=== PATIENT | female | born 2005 | race Caucasian/White ===

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

== ENCOUNTER 2024-01-20 19:50 | Observation (INO) | payer OTHER ==
[~2024-01-20] VITALS: Ht 172.7 cm; Wt 79.0 kg
[2024-01-20] MEDS ORDERED: ondansetron HCL 4 MG/2 ML VIAL IV ONE ×2 (20:15→22:30)
[2024-01-20 20:28] LABS: BILIRUBIN, URINE NEGATIVE (negative); BLOOD/HGB, URINE SMALL (Negative); KETONE, URINE NEGATIVE (Negative); LEUK ESTERASE, URINE NEGATIVE (negative); NITRITE, URINE NEGATIVE (negative); PH, URINE 6.5 (5-7)
[2024-01-20 20:30] LABS: BASOPHILS 0.2 % (0-2); HEMOGLOBIN 12.3 g/dL (12.0-18.0); LYMPHOCYTES 15.1 % (24-44); MCH 24.1 (27-36); MCHC 33.3 g/dl (30-36); MCV 72.5 fl (81-99); MONOCYTES 6.4 % (0-12); NEUTROPHILS 75.3 % (39-80); PLATELET COUNT 300 K/uL (140-440); RDW 17.5 (10.5-15.0)
[2024-01-20 20:35] LABS: CRYSTALS, URINE NONE SEEN (0-1+); EPITHELIAL CELLS, URINE SQUAMOUS 4+ /lpf (0-1+)
[2024-01-20 20:36] LABS: BACTERIA, URINE RARE /hpf (negative); CASTS, URINE NONE SEEN \\lpf; COLLECTION TYPE, URINE CLEAN CATCH; REFLEX CULTURE, URINE No (No)
[2024-01-20 20:47] LABS: ALBUMIN 3.9 g/dL (3.4-5.0); ALBUMIN/GLOBULIN RATIO 0.98 (1.1-2.4); ANION GAP 11.2 (7-21); BILIRUBIN, TOTAL 0.6 ng/dL (0.2-1.0); BUN/CREATININE RATIO 18.29 (6.0-28.6); CALCIUM 9.2 mg/dL (8.5-10.1); CREATININE, SERUM 0.82 mg/dL (0.55-1.02); POTASSIUM 4.2 mmol/L (3.5-5.1); PROTEIN, TOTAL 7.9 g/dL (6.4-8.2)
[2024-01-20] MEDS ORDERED: MORPHINE SULFATE 4 MG/ML VIAL IV ONE (21:15)
[2024-01-20] MEDS ORDERED: CEFAZOLIN SODIUM 2 GM/20 ML SYR IV ONE (22:15)
[2024-01-20] MEDS ORDERED: FAMOTIDINE 20 MG/ 2 ML VIAL IV ONE (22:30)
[2024-01-20] MEDS ORDERED: FAMOTIDINE 20 MG/ 2 ML VIAL IV SCH (22:56)
[2024-01-20] MEDS ORDERED: MORPHINE SULFATE 10 MG/ML VIAL IV PRN (23:00)
[2024-01-20] MEDS ORDERED: KETOROLAC TROMETHAMINE 30 MG/ML VIAL IV PRN (23:00)
[2024-01-20] MEDS ORDERED: LACTATED RINGER'S 1,000 ML IV SCH (23:00)
[2024-01-20] MEDS ORDERED: ondansetron HCL 4 MG/2 ML VIAL IV PRN (23:00)
[2024-01-20 23:25] VITALS: BP 107/91
--- NOTE | 2024-01-20 23:25 | NUR ---
PATIENT TO FLOOR VIA WHEELCHAIR BY CHEMICAL DEPENDENCY PROFESSIONAL.
--- NOTE | 2024-01-20 23:50 | NUR ---
PT DENIES ANY KNOWN DRUG ALLERGIES.
[2024-01-21] VITALS (10 sets, daily range): BP systolic 91–111; BP diastolic 54–73
--- NOTE | 2024-01-21 00:01 | NUR ---
PATIENT NPO AT THIS TIME.
--- NOTE | 2024-01-21 00:09 | NUR ---
PATIENT RESTING IN BED. ASSESSMENT COMPLETE. PATIENT REPORTS 5/10 RUQ PAIN. PRN PAIN MEDICATION ADMINISTERED PER PATIENT AND MOTHERS REQUEST. PATIENT IV FLUSHES WNL. PATIENT AND MOTHER EDUCATED TO ROOM AND CALL LIGHT. PATIENT EDUCATED TO CALL IF SHE NEEDS TO GET UP TO THE BATHROOM. PATIENT VERBILIZES UNDERSTANDING. BLANKETS PROVIDED TO MOTHER. NO FURTHER NEEDS. CALL LIGHT IN REACH.
--- NOTE | 2024-01-21 00:40 | NUR ---
CALL LIGHT ANSWERED. WARM BLANKETS PROVIDED TO MOTHER AND PATIENT. PILLOW PROVIDED TO MOTHER AND PHONE DUPLIGRAPH OPERATOR PROVIDED TO PATIENT. NO FURTHER NEEDS. CALL LIGHT IN REACH.
--- NOTE | 2024-01-21 02:38 | NUR ---
PATIENT RESTING IN BED ON BACK WITH EYES CLOSED. RESPIRATIONS EVEN AND UNLABORED. CALL LIGHT IN REACH.
--- NOTE | 2024-01-21 05:15 | NUR ---
CHLORHEXIDINE WIPE DOWN COMPLETE INDEPENDENTLY BY PATIENT. NEW GOWN PROVIDED AND BEDDING PLACED. LR WITH STRAIGHT TUBING HUNG ON BED. SCDs IN PLACE. PATIENT UNDERWEAR, BELLY BUTTON RING, AND NOSE RING STILL IN PLACE. PATIENT AWARE THAT THESE NEED TO BE REMOVED PRIOR TO SURGERY. PATIENT VERBILIZES UNDERSTANDING. VS AND I&Os OBTAINED AND RECORDED. PATIENT AND MOTHER DENY FURTHER NEEDS. CALL LIGHT IN REACH.
[2024-01-21 05:33] LABS: BASOPHILS 0.2 % (0-2); EOSINOPHILS 3.6 % (0-6); HEMATOCRIT 31.6 % (35.0-50.0); HEMOGLOBIN 10.5 g/dL (12.0-18.0); LYMPHOCYTES 25.5 % (24-44); MCH 23.7 (27-36); MCHC 33.4 g/dl (30-36); MCV 71.1 fl (81-99); MONOCYTES 8.8 % (0-12); NEUTROPHILS 61.9 % (39-80); PLATELET COUNT 223 K/uL (140-440); RBC 4.44 M/ul (4.3-5.7)
[2024-01-21] MEDS ORDERED: CEFAZOLIN SODIUM 2 GM/20 ML SYR IV SCH (06:00)
--- NOTE | 2024-01-21 06:00 | NUR ---
IV ABX INFUSING PER ORDER. PATIENT DENIES FURTHER NEEDS. CALL LIGHT IN REACH.
[2024-01-21] MEDS ORDERED: propofoL 200 MG/20 ML VIAL ONE ×2 (06:39→07:52)
[2024-01-21] MEDS ORDERED: MIDAZOLAM HCL 2 MG/2 ML VIAL ONE (06:39)
[2024-01-21] MEDS ORDERED: FAMOTIDINE 20 MG/ 2 ML VIAL ONE (06:39)
[2024-01-21] MEDS ORDERED: LACTATED RINGER'S 1,000 ML IV ONE (06:39)
[2024-01-21] MEDS ORDERED: KETOROLAC TROMETHAMINE 30 MG/ML VIAL ONE (06:39)
[2024-01-21] MEDS ORDERED: DEXAMETHASONE SOD PHOS 4 MG/ML VIAL ONE (06:39)
[2024-01-21] MEDS ORDERED: METOCLOPRAMIDE HCL 10 MG/2 ML SDV ONE (06:39)
[2024-01-21] MEDS ORDERED: fentaNYL citrate 100 MCG/2 ML VIAL ONE (06:39)
[2024-01-21] MEDS ORDERED: LIDOCAINE HCL 4% 5 ML AMP ONE (06:39)
[2024-01-21] MEDS ORDERED: SUCCINYLCHOLINE IN 0.9% NACL 200 MG/10 ML SYRINGE ONE (06:39)
[2024-01-21] MEDS ORDERED: ROCURONIUM BROMIDE 50 MG/5 ML SYR ONE (06:39)
[2024-01-21] MEDS ORDERED: ondansetron HCL 4 MG/2 ML VIAL ONE (06:39)
[2024-01-21] MEDS ORDERED: SUGAMMADEX SODIUM 200 MG/2 ML ML ONE (06:39)
--- NOTE | 2024-01-21 07:10 | NUR ---
REPORT RECEIVED FROM TELEMARKETING SUPERVISOR RN. OR NURSE CAME TO TAKE PATIENT TO SURGERY.
[2024-01-21] MEDS ORDERED: NALOXONE HCL 0.4 MG SYR IV PRN (07:30)
[2024-01-21] MEDS ORDERED: MORPHINE SULFATE 10 MG/ML VIAL IV PRN (07:30)
[2024-01-21] MEDS ORDERED: fentaNYL citrate 50 MCG/ML SDV IV PRN (07:30)
[2024-01-21] MEDS ORDERED: METOCLOPRAMIDE HCL 10 MG/2 ML SDV IV PRN (07:30)
[2024-01-21] MEDS ORDERED: PROCHLORPERAZINE EDISYLATE 10 MG/2 ML VIAL IV PRN (07:30)
[2024-01-21] MEDS ORDERED: ondansetron HCL 4 MG/2 ML VIAL IV PRN (07:30)
[2024-01-21] MEDS ORDERED: IBLOOD GLUCOSE TEST STRIP 1 EA TEST VI PRN (07:30)
--- NOTE | 2024-01-21 07:38 | NUR ---
UR CLINICAL REVIEW: [facility]-APPENDECTOMY WITHOUT ABSCESS OR PERITONITIS WITH LAPAROSCOPY EOCCO OBS 01/20/24 @ 2257 ORDER MATCHES REG NO AUTH REQUIRED FOR OBS PATIENTS PER MEDICAID RULES PLAN TO DC TO HOME WHEN STABLE 01/21/24
[2024-01-21] MEDS ORDERED: droPERidol 5 MG/2 ML VIAL ONE (08:00)
[2024-01-21] MEDS ORDERED: ACETAMINOPHEN 1,000 MG/100 ML VIAL ONE (09:06)
[2024-01-21] MEDS ORDERED: ACETAMINOPHEN 1,000 MG/100 ML VIAL IV ONE (09:15)
--- NOTE | 2024-01-21 09:45 | NUR ---
PATIENT BACK TO ROOM FORM SURGERY. REPORT RECEIVED FROM PACU NURSE. VSS. CPOX IN PLACE, SAO2 WNL. 3 LAP SITES WITH SCANT AMOUNT OF DRAINAGE NOTED. ABD SOFT. NO NOTED BOWEL TONES AT THIS TIME. PATIENT WANTING TO VOID, UNABLE TO STAY AWAKE FOR LONG PERIODS OF TIME. BED GRAHAM USED WITH NO SUCCESS. PUREWICK PLACED UNTIL PATIENT IS MORE ALERT. MOM AT BEDSIDE.
--- NOTE | 2024-01-21 09:56 | NUR ---
PATIENT C/O PAIN 10/06. PRN GIVEN SEE MAY.
--- NOTE | 2024-01-21 10:12 | NUR ---
01/21/24 1012 EstrellaJanuary 0849- PT ARRIVES TO THE PACU WITH ORAL AIRWAY IN PLACE, ON 10L OF O2 VIA MASK AND CHIN LIFT NEEDED TO MAINTAIN AIRWAY. LR INFUSING IN RIGHT AC. ABDOMEN IS SOFT, AND THREE LAP SITES NOTED WITH SMALL AMOUNT OF SHADOWING. PT IS NON REACTIVE TO VERBAL AND TACTILE STIMULI. ALL MONITORS IN PLACE. PT IN SEMI FOWLERS POSITION. RESP EVEN AND UNLABORED. 0854- PT IS REPOSITIONED AND CHIN LIFT IS NO LONGER NEEDED. 02 TURNED DOWN TO 6L. PT IS NON REACTIVE AT THIS TIME. 0900- PT HOB INCREASED. PT IS REACTIVE TO STIMULI AND REPOSITIONING HER HEAD INDEPENDENTLY. PT UNABLE TO FOLLOW DIRECTIONS TO OPEN HER MOUTH TO REMOVE ORAL AIRWAY. 0904- PT IS ABLE TO FOLLOW BASIC COMMANDS. ORAL AIRWAY REMOVED. 0907- MASK REMOVED AND O2 TURNED OFF. PT RESTING IN BED WITH EYES CLOSED. 0912- PT MOVING AROUND IN BED SLOWLY HOLDING HER ABDOMEN. "HURTS". IV TYLENOL GIVEN. 0925- PT REASSESED FOR PAIN AND SHOWS HANDS OF "A LITTLE" AND AGREES WHEN ASKED IF IT WAS A 2-3 ON PAIN SCALE. PT DENIES NAUSEA. 0930-VSS. ALL MONITORS REMOVED. PT TAKEN BACK TO MED/SURG. 0936- PT AT MED/SURG BACK TO ROOM. VS OBTAINED. O2 WAS AT 88%. PT ENCOURAGED TO COUGH AND DEEP BREATHE. PT GIVEN AND PILLOW TO USE TO SPLINT. PT ABLE TO COUGH AND O2 INCREASED TO 92%. REPORT GIVEN AT BEDSIDE. MED/SURGE NURSE AND MOM AT BEDSIDE. 0945- NO QUESTIONS OR CONCERNS. CARE TURNED OVER TO MED/SURGE NURSE AT THIS TIME. PT O2 REMAINED ABOVE 90%. MED/SURG NURSE AWARE. CONTINUOUS PULSE OX IN PLACE.
--- NOTE | 2024-01-21 10:29 | NUR ---
PATIENT ASSISTED TO BSC. 1 PERSON ASSIST. TRANSFERED TOLLERATED WELL. QUANITY SUFFICIENT VOID. PATIENT BACK IN BED. NO FURTHER NEEDS AT THIS TIME. CALL LIGHT WITHIN REACH. MOM AT BEDSIDE.
[2024-01-21] MEDS ORDERED: IBUPROFEN 600 MG TAB PO PRN (10:30)
[2024-01-21] MEDS ORDERED: HYDROCODONE/ACETA 5/325 TAB PO PRN (10:30)
[2024-01-21] MEDS ORDERED: ACETAMINOPHEN 500 MG TAB PO PRN (10:30)
--- NOTE | 2024-01-21 11:46 | NUR ---
PATIENT RESTING IN BED, REPORTS PAIN IS 4/10. DENIES NAUSEA, BOWEL TONES PRESENT X 4 QUADRANTS. SURGICAL SITES WNL. ICE TO ABD IN PLACE. PATIENT TAKING SIPS OF WATER. NO FURTHER NEEDS AT THIS TIME.CALL LIGHT WITHIN REACH, BED ALARM ON.
--- NOTE | 2024-01-21 11:58 | NUR ---
Patient was asleep in their bed with their mom in the room. RN was administering medication and did not need any help. No cares were needed.
--- NOTE | 2024-01-21 13:05 | NUR ---
PATIENT RESTING IN BED. VSS, LAP SITES REMAIN WNL. NO C/O PAIN AT THIS TIME. PATIENT ATE MOST OF HER LUNCH MEAL. NO FURTHER NEEDS. CALL LIGHT WITHIN REACH, BED ALARM ON.
--- NOTE | 2024-01-21 13:46 | NUR ---
PT RESTING IN BED WITH EYES CLOSED, MOTHER AT THE BEDSIDE. CALL LIGHT WITHIN REACH.
--- NOTE | 2024-01-21 14:14 | NUR ---
VISITED DURING SPIRITUAL CARE ROUNDS. PT APPEARED TO BE SLEEPING, SUPPORTED BY MOTHER IN ROOM; STRONG RELATIONAL RESOURCES IN EVIDENCE. SERVICE OFFICER PROVIDED SUPPORTIVE PRESENCE, HOSPITALITY, PRAYER. MOTHER EXPRESSED GRATITUDE, CONFIDENCE IN CARE.
--- NOTE | 2024-01-21 14:54 | NUR ---
PATIENT RESTING IN BED WITH EYES CLOSED. SURGICAL SITES REMAIN UNCHANGED. NO FURTHER DRAINAGE NOTED TO SITES. ABD SLIGHTLY DISTENDED, DENIES ANY NAUSEA, NO VOMITING. NO C/O PAIN AT THIS TIME. CALL LIGHT WITHIN REACH.
[2024-01-21] MEDS ORDERED: IBUPROFEN600 MG PO (15:04)
[2024-01-21] MEDS ORDERED: HYDROCODON-ACE1 EA10 PO (15:04)
[2024-01-21] MEDS ORDERED: ACETAMINOPHEN500 MG PO (15:04)
--- NOTE | 2024-01-21 15:44 | NUR ---
MED REC COMPLETE
--- NOTE | 2024-01-21 15:54 | NUR ---
Patient was up and dressed. RN and pharmacist were both in room preparing for discharged. Help was offered but declined.
--- NOTE | 2024-01-21 16:05 | NUR ---
DISCHARGE ORDERS RECEIVED. PATIENT GIVEN DISCHARGE INSTRUCTIONS. QUESTIONS ASKED AND ANSWERED. VSS. IV SITE DISCONTINUED PER NORMAL PROTOCOL. PHARMACY PROVIDED EDUCATION. PATIENT DISCHARGING WITH ALL BELONGINGS SHE ARRIVED WITH. RN WHEELED PATIENT OUT VIA W/C. TRNASFERED TO CARE WELL.
--- NOTE | 2024-01-24 11:13 | OR ---
[facility] [address] [facility] [place], [place] [address] Signed DATE OF OPERATION: 01/21/2024 SURGEON: Salma Campuzano MD PREOPERATIVE DIAGNOSIS: Acute appendicitis. POSTOPERATIVE DIAGNOSIS: Acute appendicitis. PROCEDURE: Laparoscopic appendectomy. ANESTHESIA: General endotracheal; Salma Price CRNA and local 10 mL of 0.25% Marcaine with epinephrine. INDICATION: This 18-year-old woman presented to the emergency room yesterday with increasing right lower abdominal pain, evaluation included a CT scan confirming acute appendicitis. She has been fluid resuscitated given intravenous antibiotics and now to undergo appendectomy preferred by laparoscopic approach. The risk of bleeding, infection, need for open procedure and other unforeseen complications was reviewed in detail. She understands and wished to proceed. FINDINGS: Indeed the appendix was quite markedly inflamed. There was no evidence of perforation or abscess. Appendectomy was performed without problem. She did have some adhesions of the cecum to the abdominal wall which were taken down. The gallbladder itself looked reasonably normal as did the liver. PROCEDURE IN DETAIL: The patient was brought to the operating room, given a general endotracheal anesthetic. Preoperative antibiotic Ancef and Flagyl had been given. Sequential compression device stockings were used. The abdomen was prepared with chlorhexidine solution and draped sterilely. An infraumbilical incision was made and using an open Ary cannula technique pneumoperitoneum achieved to a level of 14 mmHg of carbon dioxide gas. Intra-abdominal inspection showed no sign of ascites, carcinomatosis or other abnormality. The appendix was not visible at that time. An epigastric port was placed Electronically Signed By: SALMA CAMPUZANO MD 01/24/24 1113 PATIENT NAME: MARLON JACKSON OPERATIVE REPORT DATE OF : 04 REPORT #: [id number] PHYSICIAN: SALMA CAMPUZANO MD PCP: DI LINK MD REPORT IS CONFIDENTIAL AND NOT TO BE RELEASED WITHOUT AUTHORIZATION [facility] [address] [place], [place] [address] Signed under direct visualization, 12 mm in size. The camera was placed through the epigastric port. The single hand manipulation of the cecum was identified. There were adhesions in covering good visualization there. Using sharp dissection and minimal amounts of cautery, the cecum was freed from the abdominal wall. This allowed for visualization of the markedly inflamed appendix oriented laterally and posteriorly. The right lower quadrant 5 mm port was placed and using two hand manipulation, the appendix was positioned in allowing for good visualization in the mesoappendix and the appendiceal cecal junction. Using a small amount of cautery, a window was created in the mesoappendix at the base of the appendix and plans made for transection with a stapling device with the Endo-NORM stapling device. This stapler was used to transect the appendix flushed with the cecum. Manipulations to allow for transection of the mesoappendix were unsuccessful and therefore the camera was replaced to the umbilical site and the stapler to the epigastric port which allowed for simple transection in the mesoappendix. The appendix was extracted through the infraumbilical port site covering it as it was extracted from the abdomen. Irrigation was undertaken in the region of the staple line showing no sign of bleeding or other problems particularly. Irrigation was undertaken. The right ovary was identified and relatively small in size and normal. The tube was normal also. Excess irrigation fluid was suctioned free. The trocars removed under direct visualization showing no sign of bleeding. The infraumbilical fascial incision was reapproximated with interrupted 0 Vicryl suture. 10 mL of 0.25% Marcaine with epinephrine was injected locally in the skin closed with interrupted 3-0 Vicryl. Steri-Strips were applied. The patient was ultimately extubated and transferred to the recovery room in good condition and suffered no complication. Sponge, needle, and instrument counts reported as correct x3. MD ZAYDA Corrales/MODL /[id number] cc: Dr. Matthew Link MD Electronically Signed By: SALMA CAMPUZANO MD 01/24/24 1113 PATIENT NAME: MARLON JACKSON ANN OPERATIVE REPORT DATE OF : 04 REPORT #: [id number] PHYSICIAN: SALMA CAMPUZANO MD PCP: DI LINK MD REPORT IS CONFIDENTIAL AND NOT TO BE RELEASED WITHOUT AUTHORIZATION [facility] [address] [place] [address] [place] [address] Signed Copies: ~ Electronically Signed By: SALMA CAMPUZNAO MD 01/24/24 1113 PATIENT NAME: RENETTAMARLON ANN OPERATIVE REPORT DATE OF : 04 REPORT #: [id number] PHYSICIAN: SALMA CAMPUZANO MD PCP: DI LINK MD REPORT IS CONFIDENTIAL AND NOT TO BE RELEASED WITHOUT AUTHORIZATION
--- NOTE | 2024-01-24 11:13 | HP ---
[facility] [address] [place], [place] [address] Signed ADMISSION DATE: 01/20/2024 TIME: 10:45 p.m. ISSUE: Appendicitis. HISTORY OF PRESENT ILLNESS: This 18-year-old white young woman is accompanied by her ahajep-au-bhd. Her in the [facility] [address] in [place] currently. At approximately 6:00 p.m., she had the onset of lower abdominal pain, which was worsening and not improved by any measures. She presents to the emergency room where she was evaluated by Dr. Barber and found to have an elevated white count of 12.5 and a slightly abnormal urinalysis. A CT scan was performed, which was compatible with acute uncomplicated appendicitis. 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 Both ureters are considered normal. PAST MEDICAL HISTORY: Rather unremarkable. She has never had . She does have constipation from time to time. Her renal abnormality is well known to her. MEDICATIONS: She takes no medications on a routine basis. ALLERGIES: Has no known drug allergies. PHYSICAL EXAMINATION: GENERAL: Pleasant, white woman who does not look systemically toxic. She voided just prior to my evaluation. VITAL SIGNS: Her temperature is 98.4, pulse 84, blood pressure 133/91. HEENT: Trachea is midline. CHEST: Shows normal respiratory excursion. HEART: Pulses regular. ABDOMEN: Nondistended. Rovsing sign is negative. She does have tenderness below McBurney's point on the right side. She has no right upper quadrant tenderness. EXTREMITIES: Show no clubbing, cyanosis, or edema. LABORATORY STUDIES: Show a white count of 12.3, hematocrit 37, platelets 300,000. Electrolytes are normal. Electronically Signed By: SALMA CAMPUZANO MD 01/24/24 1113 PATIENT NAME: MARLON JACKSON HISTORY AND PHYSICAL DATE OF : 04 REPORT #: [id number] PHYSICIAN: SALMA CAMPUZANO MD PCP: DI LINK MD REPORT IS CONFIDENTIAL AND NOT TO BE RELEASED WITHOUT AUTHORIZATION [facility] [address] [place], [place] [address] Signed Creatinine is 0.82. Beta HCG is negative. Urine clean-catch shows urine RBCs 2-3, white cells 7-11, epithelial cells, squamous 4+, rare urinary bacteria is noted. CT scan findings were as described. ASSESSMENT: The patient has early appendicitis based on clinical examination and radiographic studies. My review of the CT scan shows the cecum to be rather low in position. She will be admitted at this time, anticipating an operation within the next 12 hours. IV antibiotics be initiated. N.p.o. status maintained and IV fluids administered. Parental pain medication will be administered as well. The risk of bleeding, infection, need for open surgery instead of the laparoscopic one and need for other indicated procedures was reviewed with the patient in the presence of her qtudro-vq-oma. Of note, her own mother. We will be coming from [place], [place] to see her this evening as well. MD ZAYDA Corrales/SHELBYL /[id number] cc: MD Dr. Elisabeth Cadet Copies: ~ Electronically Signed By: SALMA CAMPUZANO MD 01/24/24 1113 PATIENT NAME: MARLON JACKSON ANN HISTORY AND PHYSICAL DATE OF : 04 REPORT #: [id number] PHYSICIAN: SALMA CAMPUZANO MD PCP: DI LINK MD REPORT IS CONFIDENTIAL AND NOT TO BE RELEASED WITHOUT AUTHORIZATION
--- NOTE | 2024-01-26 18:20 | PATH ---
[facility] [address] [facility] [place], [place] [address] Signed SPECIMEN(S): A APPENDIX SPECIMEN SOURCE: A. APPENDIX CLINICAL HISTORY: Acute appendicitis, laparoscopic appendectomy FINAL PATHOLOGIC DIAGNOSIS: Appendix, appendectomy: - Acute appendicitis with focal epithelial ulceration. - Focal periappendicitis and serositis. - Focal suppurative inflammation. JVR:benedicto MICROSCOPIC EXAMINATION: Histologic sections of all submitted blocks are examined by light microscopy. These findings, together with the gross examination, support the pathologic diagnosis. GROSS DESCRIPTION: The specimen, labeled and designated "Suleiman Jackson, appendix," is received in formalin and consists of Specimen: Appendix with mesoappendix. Dimensions: 8.2 x 0.8 cm. Serosa: Lufkin-lopez congested smooth. Defect: Not grossly identified. Inking: Staple line is inked Blue. Mucosa: Lufkin-lopez dilated filled with dark brown soft material and koch-lopez soft material at the tip. Fecalith: Not grossly identified. Additional: No gross identifiable lesions. Cna Instructor sections are submitted in (A1). ZAYDA (under the direct supervision of a pathologist) The Gross Description was prepared using a voice recognition system. The report was reviewed for accuracy; however, sound-alike word errors, addition and/or deletions may occur. If there is any question about this report, please contact Client Services. PERFORMING LABORATORY: Technical component was performed by [facility], Be Hammer, PATIENT NAME: MARLON JACKSON POP PATHOLOGY DATE OF : 04 REPORT #: [id number] PHYSICIAN: ABELINO PATHOLOGY PCP: DI LINK MD REPORT IS CONFIDENTIAL AND NOT TO BE RELEASED WITHOUT AUTHORIZATION [address] [place] [address] [place] [address] (CLIA# [id number]). Professional interpretation [facility] performed by [facility] - [address] [address] (CLIA#: [id number]). Diagnostician: Arnulfo Schilling MD Pathologist Electronically Signed 01/26/2024 Copies: ~ PATIENT NAME: MARLON JACKSON POP PATHOLOGY DATE OF : 04 REPORT #: [id number] PHYSICIAN: ABELINO PATHOLOGY PCP: DI LINK MD REPORT IS CONFIDENTIAL AND NOT TO BE RELEASED WITHOUT AUTHORIZATION
== END 2024-01-21 16:05 | disposition home or self-care (01) ==
LOC: ED 19:50 → MS 19:52
PROVIDERS: Internal Medicine; ADMIT Surgery; ATTEND Surgery
PROC: 0DTJ4ZZ Resection of Appendix, Percutaneous Endoscopic Approach (ICD-10-PCS; principal; 2024-01-21 08:00)
DX: K35.80 Unspecified acute appendicitis (principal); K66.0 Peritoneal adhesions (postprocedural) (postinfection)
CPT/HCPCS: 00840; 36415; 74177; 80053; 81001; 83690; 84703; 85025; 88304; 96366; 96375; 96376; 99285-25; G0378; J0131; J0330; J0690; J1100; J1790; J1885; J2250; J2270; J2405; J2704; J2765; J3010; J3490; J7121; Q9967